=== PATIENT | male | born 2000 | race Caucasian/White ===

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

== ENCOUNTER 2021-02-08 16:36 | Emergency (ER) | payer SELFPAY ==
[~2021-02-08 16:36] MED LIST: AMOXICILLIN500 M1 PO; IBUPROFEN800 MG PO; ZOFRAN4 MG PO
[2021-02-08] MEDS ORDERED: IBUPROFEN600 MG PO (17:38)
== END 2021-02-08 17:45 | disposition home or self-care (01) ==
LOC: ER1 16:36
DX: S60.222A Contusion of left hand, initial encounter (principal); F17.200 Nicotine dependence, unspecified, uncomplicated; W04.XXXA Fall while being carried or supported by other persons, initial encounter
CPT/HCPCS: 73130; 99283